=== PATIENT | female | born 1995 | race Caucasian/White ===

== ENCOUNTER 2024-02-29 14:57 | Emergency (ER) | payer OTHER ==
[2024-02-29] MEDS ORDERED: ONDANSETRON 4 MG/2 ML VIAL ONE ×2 (17:49→19:00)
[2024-02-29] MEDS ORDERED: NA CHLORIDE 0.9% 1,000 ML ONE ×2 (17:49→19:00)
[2024-02-29 18:12] LABS: Absolute Basophils 0.2 K/uL (0-0.5); Absolute Lymphocytes (CBC) 0.6 K/uL (0.7-4.9); Absolute Monocytes 0.5 K/uL (0.1-1.3); Absolute Neutrophil 20.3 K/uL (1.8-8.0); Basophils % 0.8 % (0-1.3); Hematocrit 41.8 % (36.0-45.0); Hemoglobin 14.2 g/dL (12.0-15.0); MCH 31.5 pg (27.0-35.0); MCHC 34.1 g/dL (32.0-36.0); MCV 92.3 fL (80-100); MPV 9.2 fL (7.6-11.3); Monocytes % 2.2 % (3.3-12.3); Platelets 249 thou/uL (152-406); RBC Red Blood Cell Count 4.53 M/uL (3.86-4.86); Red Cell Distribution Width 13.3 % (12.1-15.2)
[2024-02-29 18:31] LABS: Albumin 4.3 g/dL (3.4-5.0); Albumin/Globulin Ratio 1.1 (1.1-1.8); Anion Gap 8.1 mEq/L (5.0-15.0); Bilirubin Total 0.5 mg/dL (0.2-1.0); Globulin 3.9 g/dL (2.3-3.5); Potassium 3.1 mEq/L (3.5-5.1); Protein, Total 8.2 g/dL (6.4-8.2)
[2024-02-29] MEDS ORDERED: FAMOTIDINE 20 MG/2 ML VIAL IV ONE (19:00)
[2024-02-29] MEDS ORDERED: LORazepam 2 MG/ML VIAL ONE (19:36)
[2024-02-29] MEDS ORDERED: NA CHLORIDE 0.9% 50 ML ONE (19:37)
[2024-02-29] MEDS ORDERED: PROMETHAZINE INJ 25 MG/ML AMP ONE (19:37)
[2024-02-29 20:01] LABS: Blood Morphology Comment NOT SEEN (NOT SEEN); Platelet Estimate ADEQ; White Blood Cell Scan OK (OK)
[2024-02-29 20:29] LABS: Specific Gravity > 1.030 (1.005-1.030)
[2024-02-29 20:32] LABS: Specific Gravity > 1.030 (1.005-1.030); Sqamous Epithelial <5 /HPF (None Seen); Urine Bacteria <20 /HPF (<20); Urine Bilirubin NEGATIVE (Negative); Urine Blood Negative (Negative); Urine Clarity Extremely Turbid (Clear); Urine Color Light-Orange (Yellow); Urine Crystals Unidentified Moderate /HPF (None Seen); Urine Culture Reflex Order NOT NEEDED; Urine Glucose TRACE (Negative); Urine Ketones 4+ (Over) (Negative); Urine Microscopic Reflex YN ORDER UMIC; Urine Mucus 4+ /HPF (None Seen); Urine Nitrite NEGATIVE (Negative); Urine Protein 1+ (Negative); Urine RBC <5 /HPF (None Seen); Urine Urobilinogen Normal (Normal); Urine WBC Clump Occasional /HPF (None Seen)
[2024-02-29 20:39] LABS: Barbiturates NEGATIVE (NEGATIVE); Benzodiazepines NEGATIVE (NEGATIVE); Cocaine NEGATIVE (NEGATIVE); METHAMPHETAM NEGATIVE (NEGATIVE); Methadone NEGATIVE (NEGATIVE); Opiates NEGATIVE (NEGATIVE); Phencyclidine NEGATIVE (NEGATIVE); THC Cannibis POSITIVE (NEGATIVE)
--- NOTE | 2024-02-29 21:12 | RAD REPORT ---
EXAM DESCRIPTION: CTAbdomen Pelvis W Contrast - 02/29/2024 9:02 pm CLINICAL HISTORY: Abdominal pain. vomiting COMPARISON: <Comparisons> TECHNIQUE: Venous phase CT imaging of the abdomen and pelvis was performed with 100 ml non-ionic IV contrast. All CT scans are performed using dose optimization technique as appropriate and may include automated exposure control or mA/KV adjustment according to patient size. FINDINGS: The lung bases are clear.Cholecystectomy clips. Small hiatal hernia. The liver, spleen, pancreas, adrenal glands and kidneys are within normal limits. No bowel obstruction, free air, free fluid or abscess. The appendix is normal. No evidence of signi ficant lymphadenopathy. No suspicious bony findings. IMPRESSION: No acute intra-abdominal or pelvic finding.
--- NOTE | 2024-02-29 22:18 | ER ---
Nurse's Notes [facility] Name: Padma Rogers Age: 28 yrs Sex: Female : 1995 Arrival Date: 02/29/2024 Time: 14:57 Bed 11 Private MD: Diagnosis: Nausea with vomiting, unspecified Presentation: 02/28 15:24 Chief complaint: Patient states: she started a new medication, abilify, five days ago, ap3 and has started having nausea and vomiting this morning. patient is unsure if the two are related. Coronavirus screen: At this time, the client does not indicate any symptoms associated with coronavirus-19. Ebola Screen: No symptoms or risks identified at this time. Initial Sepsis Screen: Does the patient meet any 2 criteria? No. Patient's initial sepsis screen is negative. Does the patient have a suspected source of infection? No. Patient's initial sepsis screen is negative. Risk Assessment: Do you want to hurt yourself or someone else? Patient reports no desire to harm self or others. Onset of symptoms was February 29, 2024. 15:24 Method Of Arrival: Ambulatory ap3 15:24 Acuity: REYNA 3 ap3 Triage Assessment: 15:26 General: Appears uncomfortable, Behavior is calm, cooperative, appropriate for age. ap3 Pain: Denies pain. Neuro: Level of Consciousness is awake, alert, obeys commands, Oriented to person, place, time, situation, Appropriate for age. Cardiovascular: Patient's skin is warm and dry. Respiratory: Airway is patent Respiratory effort is even, unlabored, Respiratory pattern is regular, symmetrical. GI: Reports nausea, vomiting. 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 - Infectious Disease History:: Denies. - Social history:: Smoking status: Reported history of juuling and/or vaping. Screenin:27 [facility] ED Fall Risk Assessment (Adult) History of falling in the last 3 months, ap3 including since admission No falls in past 3 months (0 pts) Confusion or Disorientation No (0 pts) Intoxicated or Sedated No (0 pts) Impaired Gait No (0 pts) Mobility Assist Device Used No (0 pt) Altered Elimination No (0 pt) Score/Fall Risk Level 0 - 2 = Low Risk Oriented to surroundings, Maintained a safe environment, Educated pt \T\ family on fall prevention, incl call for assistance when getting out of bed, Assessed \T\ reinforced patient's understanding of fall precautions, Hourly rounding (assess needs \T\ fall precautionary measures) done, Used ambulatory aids as needed (educated on \T\ assisted with), Used gait belt as appropriate. Abuse screen: Denies threats or abuse. Nutritional screening: No deficits noted. Tuberculosis screening: No symptoms or risk factors identified. Assessment: 18:08 General: Appears uncomfortable, Behavior is calm, cooperative. Pain: Denies pain. tl4 Neuro: Level of Consciousness is awake, alert, obeys commands, Oriented to person, place, time, situation, Moves all extremities. Full function Speech is normal. Cardiovascular: Capillary refill < 3 seconds Patient's skin is warm and dry. Respiratory: Airway is patent Respiratory effort is even, unlabored, Respiratory pattern is regular, symmetrical. GI: Pt is actively vomiting bile, Reports nausea, vomiting. : No signs and/or symptoms were reported regarding the genitourinary system. EENT: No signs and/or symptoms were reported regarding the EENT system. Derm: No signs and/or symptoms reported regarding the dermatologic system. Musculoskeletal: No signs and/or symptoms reported regarding the musculoskeletal system. Vital Signs: 15:24 BP 148 / 91; Pulse 87; Resp 18; Temp 97.5; Pulse Ox 100% ; Weight 131.54 kg; Height 5 ap3 ft. 7 in. ; 18:07 BP 123 / 89; Pulse 85; Resp 20; Pulse Ox 99% on R/A; tl4 19:11 BP 125 / 86; Pulse 74; Resp 18; Pulse Ox 99% on R/A; tl4 20:00 BP 135 / 80; Pulse 83; Resp 16; Pulse Ox 100% ; tl4 21:00 BP 129 / 78; Pulse 89; Resp 18; Pulse Ox 100% on R/A; tl4 22:00 BP 119 / 76; Pulse 72; Resp 16; Pulse Ox 100% on R/A; tl4 22:30 BP 123 / 76; Pulse 75; Resp 18; Temp 98.5(O); Pulse Ox 99% on R/A; tl4 15:24 Body Mass Index 45.42 (131.54 kg, 170.18 cm) ap3 ED Course: 15:02 Patient arrived in ED. mg5 15:03 Roestta Hernandez PA-C is PHCP. sb4 15:03 Hira Barker MD is Attending Physician. sb4 15:25 Triage completed. ap3 15:27 Arm band placed on right wrist. ap3 17:36 Geoff Tolbert, JESUS is Primary Nurse. tl4 18:10 Patient has correct armband on for positive identification. Placed in gown. Bed in low tl4 position. Call light in reach. Side rails up X 1. Adult w/ patient. Provided Education on: ed process, call foley. Client placed on continuous cardiac and pulse oximetry monitoring. NIBP monitoring applied. Door closed. Noise minimized. Lights dimmed. Moved to private room. Warm blanket given. 18:10 No provider procedures requiring assistance completed. Initial lab(s) drawn, by pr, tl4 sent to lab. Inserted saline lock: 22 gauge in right antecubital area, using aseptic technique. Blood collected. Flushed with 10 mL NS. 18:11 CBC with Diff Sent. tl4 18:11 CMP Sent. tl4 18:11 Lipase Sent. tl4 18:13 PHCP role handed off by Rosetta Hernandez PA-C cp 18:13 Gerardo Sewell PA is PHCP. cp 19:36 Radiology exam delayed due to test not completed at this time. mw3 20:17 UDS Sent. tl4 20:17 Test, Urine Sent. tl4 20:17 Urinalysis w/ reflexes Sent. tl4 21:04 CT Abd/Pelvis - IV Contrast Only In Process Unspecified. EDMS 22:35 IV discontinued, intact, bleeding controlled, No redness/swelling at site. Pressure tl4 dressing applied. Administered Medications: 18:11 Drug: NS 0.9% IV 1000 ml IV at 1 bolus Per protocol; 1000 mL bolus Route: IV; Rate: 1 tl4 bolus; Site: right antecubital; Delivery: Primary tubing; 18:57 Follow up: Response: No adverse reaction; IV Status: Completed infusion; IV Intake: tl4 1000ml 18:11 Drug: Ondansetron IVP 4 mg IVP once; over 2 minutes Route: IVP; Infused Over: 2 mins; tl4 Site: right antecubital; 18:57 Follow up: Response: No adverse reaction; Nausea unchanged tl4 19:10 Drug: Famotidine IVP 20 mg IVP once; dilute with 10 mL 0.9% NaCl; give over 2 minutes tl4 Route: IVP; Infused Over: 2 mins; Site: right antecubital; 20:02 Follow up: Response: No adverse reaction tl4 19:10 Drug: NS 0.9% IV 1000 ml IV at 1 bolus Per protocol; 1000 mL bolus Route: IV; Rate: 1 tl4 bolus; Site: right antecubital; Delivery: Primary tubing; 22:05 Follow up: Response: No adverse reaction; IV Status: Completed infusion; IV Intake: tl4 1000ml 19:11 Drug: Ondansetron IVP 4 mg IVP once; over 2 minutes Route: IVP; Infused Over: 2 mins; tl4 Site: right antecubital; 20:02 Follow up: Response: No adverse reaction tl4 20:01 Drug: Promethazine IVP 25 mg IVP once {Note: mixed in 50mL NS.} Route: IVP; Infused tl4 Over: 15 mins; Site: right antecubital; 20:17 Follow up: Response: No adverse reaction; Nausea is decreased tl4 20:01 Drug: Ativan IVP 1 mg IVP once Route: IVP; Site: right antecubital; tl4 20:17 Follow up: Response: No adverse reaction; Nausea is decreased tl4 Medication: 18:10 VIS not applicable for this client. tl4 Intake: 18:57 IV: 1000ml; Total: 1000ml. tl4 22:05 IV: 1000ml; Total: 2000ml. tl4 Outcome: 22:17 Discharge ordered by . cp 22:35 Discharged to home ambulatory, with family, tl4 22:35 Condition: stable 22:35 Discharge instructions given to patient, family, Instructed on discharge instructions, follow up and referral plans. medication usage, Demonstrated understanding of instructions, follow-up care, medications, Prescriptions given X 3, 22:43 Patient left the ED. tl4 Signatures: Dispatcher [employer] EDMS Gerardo Sewell PA PA cp Prokisch, Amanda, RN RN ap3 Zarina Chaudhary mw3 Rosetta Hernandez PA-C PA-C sb4 Nell Rojo mg5 Geoff Tolbert, JESUS RN tl4
--- NOTE | 2024-02-29 22:18 | EDPHYS ---
Physician Documentation [facility] Name: Padma Rogers Age: 28 yrs Sex: Female : 1995 Arrival Date: 02/29/2024 Time: 14:57 Bed 11 Private MD: ED Physician Hira Barker HPI: 02/28 15:34 This 28 yrs old Female presents to ER via Ambulatory with complaints of Nausea/Vomiting.sb4 15:34 The patient presents to the emergency department with nausea, vomiting. Onset: The sb4 symptoms/episode began/occurred this morning. Possible causes: new medication, abilify. The symptoms are aggravated by nothing. The symptoms are alleviated by nothing. Associated signs and symptoms: The patient has no apparent associated signs or symptoms. The patient has not experienced similar symptoms in the past. started abilify 5 days ago, started experiencing headache and belching, intractable nausea/vomiting this mornin. 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 - Infectious Disease History:: Denies. - Social history:: Smoking status: Reported history of juuling and/or vaping. ROS: 15:34 Constitutional: Negative for fever, chills, and weight loss, sb4 15:34 Abdomen/GI: Positive for nausea and vomiting, 15:34 Neuro: Positive for headache, 15:34 All other systems are negative, Exam: 15:34 Head/Face: Normocephalic, atraumatic. Eyes: Extra-ocular motions intact. Periorbital sb4 areas with no swelling, redness, or edema. ENT: Mucous membranes moist. Respiratory: Lungs have equal breath sounds bilaterally, clear to auscultation and percussion. No rales, rhonchi or wheezes noted. No increased work of breathing, no retractions or nasal flaring. Abdomen/GI: Soft, non-tender, no distension. Skin: Warm, dry with normal turgor. Normal color with no rashes, no lesions, and no evidence of cellulitis. 15:34 Constitutional: The patient appears alert, awake, uncomfortable, vomiting 15:34 Cardiovascular: Rate: tachycardic, Rhythm: regular, Vital Signs: 15:24 BP 148 / 91; Pulse 87; Resp 18; Temp 97.5; Pulse Ox 100% ; Weight 131.54 kg; Height 5 ap3 ft. 7 in. ; 18:07 BP 123 / 89; Pulse 85; Resp 20; Pulse Ox 99% on R/A; tl4 19:11 BP 125 / 86; Pulse 74; Resp 18; Pulse Ox 99% on R/A; tl4 20:00 BP 135 / 80; Pulse 83; Resp 16; Pulse Ox 100% ; tl4 21:00 BP 129 / 78; Pulse 89; Resp 18; Pulse Ox 100% on R/A; tl4 22:00 BP 119 / 76; Pulse 72; Resp 16; Pulse Ox 100% on R/A; tl4 22:30 BP 123 / 76; Pulse 75; Resp 18; Temp 98.5(O); Pulse Ox 99% on R/A; tl4 15:24 Body Mass Index 45.42 (131.54 kg, 170.18 cm) ap3 MDM: 15:08 Patient medically screened. sb4 18:00 Differential diagnosis: gastritis, cholecystitis, pancreatitis, appendicitis, cp diverticulitis, viral gastroenteritis, gastroenteritis. 22:16 Data reviewed: vital signs, nurses notes, lab test result(s), radiologic studies, and cp as a result, I will discharge patient. Counseling: I had a detailed discussion with the patient and/or guardian regarding the historical points, exam findings, and any diagnostic results supporting the discharge/admit diagnosis, lab results, radiology results, to return to the emergency department if symptoms worsen or persist or if there are any questions or concerns that arise at home. 22:16 I considered the following discharge prescriptions or medication management in the emergency department Medications were administered in the Emergency Department. See MAR. Response to treatment: the patient's symptoms have mildly improved after treatment. ED course: VSS. Nausea improved. Patient requesting discharge to home for continued monitoring. 02/28 15:33 Order name: CBC with Diff; Complete Time: 20:51 sb4 02/28 18:41 Interpretation: Normal except: WBC 21.60; BAKARI% 94.0; LYM% 3.0; MN% 2.2; NEUT A 20.3; cp LYMA 0.6. 02/28 15:33 Order name: CMP; Complete Time: 18:41 sb4 02/28 15:33 Order name: Lipase; Complete Time: 18:41 sb4 02/28 15:33 Order name: Test, Urine; Complete Time: 20:51 sb4 02/28 15:33 Order name: Urinalysis w/ reflexes; Complete Time: 20:51 sb4 02/28 18:19 Order name: CBC Smear Scan; Complete Time: 20:51 EDMS 02/28 18:41 Order name: UDS; Complete Time: 20:51 cp 02/28 20:52 Interpretation: Reviewed. cp 02/28 19:31 Order name: CT Abd/Pelvis - IV Contrast Only; Complete Time: 21:46 cp 02/28 21:46 Interpretation: Report reviewed. 02/28 15:33 Order name: IV Saline Lock; Complete Time: 18:11 sb4 02/28 15:33 Order name: Labs collected and sent; Complete Time: 18:11 sb4 02/28 21:46 Order name: PO challenge; Complete Time: 22:28 cp Administered Medications: 18:11 Drug: NS 0.9% IV 1000 ml IV at 1 bolus Per protocol; 1000 mL bolus Route: IV; Rate: 1 tl4 bolus; Site: right antecubital; Delivery: Primary tubing; 18:57 Follow up: Response: No adverse reaction; IV Status: Completed infusion; IV Intake: tl4 1000ml 18:11 Drug: Ondansetron IVP 4 mg IVP once; over 2 minutes Route: IVP; Infused Over: 2 mins; tl4 Site: right antecubital; 18:57 Follow up: Response: No adverse reaction; Nausea unchanged tl4 19:10 Drug: Famotidine IVP 20 mg IVP once; dilute with 10 mL 0.9% NaCl; give over 2 minutes tl4 Route: IVP; Infused Over: 2 mins; Site: right antecubital; 20:02 Follow up: Response: No adverse reaction tl4 19:10 Drug: NS 0.9% IV 1000 ml IV at 1 bolus Per protocol; 1000 mL bolus Route: IV; Rate: 1 tl4 bolus; Site: right antecubital; Delivery: Primary tubing; 22:05 Follow up: Response: No adverse reaction; IV Status: Completed infusion; IV Intake: tl4 1000ml 19:11 Drug: Ondansetron IVP 4 mg IVP once; over 2 minutes Route: IVP; Infused Over: 2 mins; tl4 Site: right antecubital; 20:02 Follow up: Response: No adverse reaction tl4 20:01 Drug: Promethazine IVP 25 mg IVP once {Note: mixed in 50mL NS.} Route: IVP; Infused tl4 Over: 15 mins; Site: right antecubital; 20:17 Follow up: Response: No adverse reaction; Nausea is decreased tl4 20:01 Drug: Ativan IVP 1 mg IVP once Route: IVP; Site: right antecubital; tl4 20:17 Follow up: Response: No adverse reaction; Nausea is decreased tl4 Disposition Summary: 02/29/24 22:17 Discharge Ordered Notes: Location: Home cp Problem: new cp Symptoms: have improved cp Condition: Stable cp Diagnosis - Nausea with vomiting, unspecified cp Followup: cp - With: Private Physician - When: 2 - 3 days - Reason: Recheck today's complaints Discharge Instructions: - Discharge Summary Sheet cp - Nausea and Vomiting, Adult cp Forms: - Medication Reconciliation Form cp - Antibiotic Education cp - Prescription Opioid Use cp - Patient Portal Instructions cp - Leadership Thank You Letter cp Prescriptions: - Pepcid 20 mg Oral Tablet - take 1 tablet ORAL route every 12 hours for 10 days; 20 tablet; Refills: 0, cp Product Selection Permitted - promethazine 25 mg Oral Tablet - take 1 tablet ORAL route every 6 hours As needed; 20 tablet; Refills: 0, cp Product Selection Permitted - ondansetron 8 mg Oral Tablet,disintegrating - take 1 tablet ORAL route every 12 hours; 15 tablet; Refills: 0, Product cp Selection Permitted Signatures: Dispatcher [employer] EDNE Gerardo Sewell PA PA cp Prokisch, Amanda, RN RN Rosetta Jasso PA-C PAMadhavi sb4 Geoff Tolbert RN RN tl4 Corrections: (The following items were deleted from the chart) 03/01 21:53 08:05 Data reviewed: vital signs, nurses notes, lab test result(s), radiologic studies, cp and as a result, I will discharge patient, sb4 21:53 08:05 Counseling: I had a detailed discussion with the patient and/or guardian cp regarding the historical points, exam findings, and any diagnostic results supporting the discharge/admit diagnosis, lab results, radiology results, to return to the emergency department if symptoms worsen or persist or if there are any questions or concerns that arise at home, sb4
[2024-02-29 23:18] VITALS: TEMP 97.5
[2024-02-29 23:21] VITALS: BP 135/80; O2SAT 100
== END 2024-02-29 22:43 | disposition home or self-care (01) ==
LOC: ER 14:57
DX: R11.2 Nausea with vomiting, unspecified (principal); R51.9 Headache, unspecified
CPT/HCPCS: 96361; 85025; 81001; 36415; 81025; 83690; 80053; 80307; 74177; 96375; 96374; 99284; Q9967; J2550; J2405 ×2; J7030 ×2

== ENCOUNTER 2024-03-02 08:50 | Emergency (ER) | payer OTHER ==
[2024-03-02] MEDS ORDERED: ONDANSETRON 4 MG/2 ML VIAL ONE (09:07)
[2024-03-02] MEDS ORDERED: NA CHLORIDE 0.9% 1,000 ML ONE (09:07)
[2024-03-02 09:27] LABS: Absolute Basophils 0.1 K/uL (0-0.5); Absolute Monocytes 0.5 K/uL (0.1-1.3); Absolute Neutrophil 9.5 K/uL (1.8-8.0); Basophils % 0.5 % (0-1.3); Eosinophils % 0.1 % (0-4.4); Hematocrit 42.5 % (36.0-45.0); Lymphocytes % 8.8 % (15.3-44.8); MCV 93.7 fL (80-100); MPV 9.8 fL (7.6-11.3); Monocytes % 4.2 % (3.3-12.3); Neutrophils % 86.4 % (41.7-73.7); Platelets 247 thou/uL (152-406); RBC Red Blood Cell Count 4.53 M/uL (3.86-4.86); Red Cell Distribution Width 13.7 % (12.1-15.2)
[2024-03-02 09:59] LABS: Blood Morphology Comment NOT SEEN (NOT SEEN); Platelet Estimate ADEQ; White Blood Cell Scan OK (OK)
[2024-03-02 10:22] LABS: Albumin 4.1 g/dL (3.4-5.0); Albumin/Globulin Ratio 1.2 (1.1-1.8); Anion Gap 7.9 mEq/L (5.0-15.0); Bilirubin Total 0.5 mg/dL (0.2-1.0); Globulin 3.5 g/dL (2.3-3.5); Potassium 2.9 mEq/L (3.5-5.1); Protein, Total 7.6 g/dL (6.4-8.2)
[2024-03-02] MEDS ORDERED: NA CHLORIDE 0.9% 500 ML ONE (10:28)
[2024-03-02] MEDS ORDERED: KCL 20 MEQ/100 mL IVPB 100 ML IV ONE (10:29)
--- NOTE | 2024-03-02 12:14 | EDPHYS ---
Physician Documentation [facility] Name: Padma Rogers Age: 28 yrs Sex: Female : 1995 Arrival Date: 03/02/2024 Time: 08:50 Bed 18 Private MD: ED Physician Víctor Worthington HPI: 03/02 09:08 This 28 yrs old Female presents to ER via Ambulatory with complaints of Vomiting. rn 09:08 The patient presents to the emergency department with nausea, vomiting. Onset: The rn symptoms/episode began/occurred 2 day(s) ago. Possible causes: unknown. The symptoms are aggravated by nothing. The symptoms are alleviated by nothing. Associated signs and symptoms: Pertinent positives: nausea, vomiting, Pertinent negatives: diarrhea, fever, GI bleeding. Severity of symptoms: At their worst the symptoms were moderate in the emergency department the symptoms are unchanged. The patient has experienced similar episodes in the past. Patient reports nausea and vomiting for the last 2 or 3 days. Seen here 2 days ago and states felt better after medication. Did not throw up yesterday at all. Started throwing up again today. No blood in emesis. No abdominal pain. 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 Last smoked about a week ago. Also started Abilify recently but stopped it as soon as she started vomiting without change.. 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 - Infectious Disease History:: Denies. - Social history:: Smoking status: Reported history of juuling and/or vaping. - Family history:: not pertinent. - Hospitalizations: : No recent hospitalization is reported. ROS: 09:08 Constitutional: Negative for fever, chills, and weight loss, Neck: Negative for injury, rn pain, and swelling, Cardiovascular: Negative for chest pain, palpitations, and edema, Respiratory: Negative for shortness of breath, cough, wheezing, and pleuritic chest pain, Abdomen/GI: Positive for nausea and vomiting. No focal abdominal pain Back: Negative for injury and pain, MS/Extremity: Negative for injury and deformity, Skin: Negative for injury, rash, and discoloration, Neuro: Positive for generalized weakness Exam: 09:08 Constitutional: This is a well developed, well nourished patient who is awake, alert, rn actively vomiting. Head/Face: Normocephalic, atraumatic. ENT: Dry mucous membranes Cardiovascular: Regular rate and rhythm. No pulse deficits. Respiratory: No increased work of breathing, no retractions or nasal flaring. Abdomen/GI: Soft, non-tender Skin: Warm, dry MS/ Extremity: Pulses equal, no cyanosis. Neuro: Awake and alert, GCS 15, oriented to person, place, time, and situation. Vital Signs: 09:03 BP 148 / 91; Pulse 76; Resp 16; Temp 98.4(O); Pulse Ox 96% ; Weight 131.54 kg; Height 5 db ft. 7 in. ; Pain 0/10; 10:18 BP 143 / 62; Pulse 59; Pulse Ox 100% on R/A; tm6 11:20 Pulse 62; Pulse Ox 99% on R/A; tm6 12:52 BP 183 / 82; Pulse 68; Resp 17; Temp 98.4; Pulse Ox 100% on R/A; Pain 0/10; tm6 09:03 Body Mass Index 45.42 (131.54 kg, 170.18 cm) db 09:03 Pain Scale: Adult db 12:52 Pain Scale: Adult tm6 MDM: 08:55 Patient medically screened. rn 12:12 Differential diagnosis: Nonspecific abd pain, gastritis, appendicitis, diverticulitis, rn viral gastroenteritis, gastroenteritis. Data reviewed: vital signs, nurses notes, old medical records, lab test result(s), and as a result, I will discharge patient. Counseling: I had a detailed discussion with the patient and/or guardian regarding the historical points, exam findings, and any diagnostic results supporting the discharge/admit diagnosis, lab results, the need for outpatient follow up, to return to the emergency department if symptoms worsen or persist or if there are any questions or concerns that arise at home. Special discussion: I discussed with the patient/guardian in detail that at this point there is no indication for admission to the hospital. It is understood, however, that if the symptoms persist or worsen the patient needs to return immediately for re-evaluation. ED course: Patient improved, no longer vomiting. WBC improved compared to last visit [address] abdomen pelvis was -2 days ago. No gallbladder so ultrasound canceled. Never filled her prescription for nausea medication. Will discharge home with instructions to fill her medication and given return precautions.. 03/02 09:07 Order name: CBC with Diff; Complete Time: 10:08 rn 03/02 09:07 Order name: CMP; Complete Time: 10:23 rn 03/02 09:07 Order name: Lipase; Complete Time: 10:23 rn 03/02 09:59 Order name: CBC Smear Scan; Complete Time: 10:08 EDMS 03/02 09:07 Order name: IV Saline Lock; Complete Time: 09:26 rn 03/02 09:07 Order name: Labs collected and sent; Complete Time: 09:26 rn Administered Medications: 09:15 Drug: NS 0.9% IV 1000 ml IV at 1 bolus Per protocol; 1000 mL bolus Route: IV; Rate: 1 db bolus; Site: right antecubital; 10:18 Follow up: Response: No adverse reaction; IV Status: Completed infusion; IV Intake: tm6 1000ml 09:16 Drug: Ondansetron IVP 4 mg IVP once; over 2 minutes Route: IVP; Site: right antecubital;db 10:18 Follow up: Response: No adverse reaction tm6 10:14 Drug: Droperidol IVP 1.25 mg IVP once Route: IVP; Site: right antecubital; tm6 10:39 Follow up: Response: Marked relief of symptoms tm6 10:38 Not Given (med not availablee): potassium [id number] meq IV at calculated rate once; tm6 administer over 1-2 hours 10:39 Drug: Potassium Chloride IV 20 mEq IV at calculated rate once; administer over 1-2 tm6 hours Route: IV; Rate: calculated rate; Site: right antecubital; 12:52 Follow up: Response: No adverse reaction; IV Status: Completed infusion; IV Intake: tm6 100ml 12:52 Drug: Famotidine IVP 20 mg IVP once; dilute with 10 mL 0.9% NaCl; give over 2 minutes tm6 Route: IVP; Site: right antecubital; 12:52 Follow up: Response: Medication administered at discharge. 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 EDSD EDMS
--- NOTE | 2024-03-02 12:14 | ER ---
Nurse's Notes [facility] Name: Padma Rogers Age: 28 yrs Sex: Female : 1995 Arrival Date: 03/02/2024 Time: 08:50 Bed 18 Private MD: Diagnosis: Nausea with vomiting, unspecified;Cyclical vomiting, not intractable Presentation: 03/02 09:03 Chief complaint: Patient states: N/V X 3 DAYS. DENIES ABD PAIN. Coronavirus screen: db Client denies travel out of the [place] in the last 14 days. At this time, the client does not indicate any symptoms associated with coronavirus-19. Ebola Screen: Patient negative for fever greater than or equal to 101.5 degrees Fahrenheit, and additional compatible Ebola Virus Disease symptoms Patient denies exposure to infectious person. Patient denies travel to an Ebola-affected area in the 21 days before illness onset. No symptoms or risks identified at this time. Initial Sepsis Screen: Does the patient meet any 2 criteria? No. Patient's initial sepsis screen is negative. Does the patient have a suspected source of infection? No. Patient's initial sepsis screen is negative. Risk Assessment: Do you want to hurt yourself or someone else? Patient reports no desire to harm self or others. Onset of symptoms was February 28, 2021. 09:03 Method Of Arrival: Ambulatory db 09:03 Acuity: REYNA 3 db Triage Assessment: 09:00 General: Appears in no apparent distress. uncomfortable, Behavior is calm, cooperative. db Pain: Denies pain. Neuro: Level of Consciousness is awake, alert, obeys commands, Oriented to person, place, time, situation. GI: Abdomen is non-distended, Pt is actively vomiting Reports nausea, vomiting. 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 - Infectious Disease History:: Denies. - Social history:: Smoking status: Reported history of juuling and/or vaping. - Family history:: not pertinent. - Hospitalizations: : No recent hospitalization is reported. Screenin:53 [facility] ED Fall Risk Assessment (Adult) History of falling in the last 3 months, tm6 including since admission No falls in past 3 months (0 pts) Confusion or Disorientation No (0 pts) Intoxicated or Sedated No (0 pts) Impaired Gait No (0 pts) Mobility Assist Device Used No (0 pt) Altered Elimination No (0 pt) Score/Fall Risk Level 0 - 2 = Low Risk Oriented to surroundings, Maintained a safe environment, Educated pt \T\ family on fall prevention, incl call for assistance when getting out of bed. Abuse screen: Denies threats or abuse. Denies injuries from another. Nutritional screening: No deficits noted. Tuberculosis screening: No symptoms or risk factors identified. Assessment: 09:05 Reassessment: SEE TRIAGE FOR INITIAL ASSESSMENT. db 10:00 General: Appears uncomfortable, ill, Behavior is calm, cooperative. Neuro: Level of tm6 Consciousness is awake, alert, obeys commands, Oriented to person, place, time, situation. Cardiovascular: Patient's skin is warm and dry. Respiratory: Airway is patent Respiratory effort is even, unlabored, Respiratory pattern is regular, symmetrical. GI: Abdomen is round Abd is soft and non tender X 4 quads. Reports nausea, vomiting. 10:00 Reassessment: Patient states symptoms have not improved. tm6 11:20 Reassessment: Patient appears in no apparent distress at this time. Patient and/or tm6 family updated on plan of care and expected duration. Pain level reassessed. Patient is alert, oriented x 3, equal unlabored respirations, skin warm/dry/pink. Patient states symptoms have improved. 12:25 Reassessment: discharge pending completion of IV potassium. tm6 12:53 Reassessment: Patient and/or family updated on plan of care and expected duration. Pain tm6 level reassessed. Patient is alert, oriented x 3, equal unlabored respirations, skin warm/dry/pink. Vital Signs: 09:03 BP 148 / 91; Pulse 76; Resp 16; Temp 98.4(O); Pulse Ox 96% ; Weight 131.54 kg; Height 5 db ft. 7 in. ; Pain 0/10; 10:18 BP 143 / 62; Pulse 59; Pulse Ox 100% on R/A; tm6 11:20 Pulse 62; Pulse Ox 99% on R/A; tm6 12:52 BP 183 / 82; Pulse 68; Resp 17; Temp 98.4; Pulse Ox 100% on R/A; Pain 0/10; tm6 09:03 Body Mass Index 45.42 (131.54 kg, 170.18 cm) db 09:03 Pain Scale: Adult db 12:52 Pain Scale: Adult tm6 ED Course: 08:53 Patient arrived in ED. mr 08:55 Víctor Worthington MD is Attending Physician. rn 09:00 Arm band placed on Patient placed in an exam room. db 09:04 Triage completed. db 09:14 Initial lab(s) drawn, by me, sent to lab. Inserted saline lock: 20 gauge in right db antecubital area, using aseptic technique. Blood collected. Flushed with 10 mL NS. 09:55 Tika Ku, RN is Primary Nurse. tm6 09:55 Lipase Sent. tm6 09:55 CMP Sent. tm6 10:00 Patient has correct armband on for positive identification. Bed in low position. Call tm6 light in reach. Side rails up X 1. Provided Education on: use of call foley. Client placed on continuous cardiac and pulse oximetry monitoring. NIBP monitoring applied. Pulse ox on. NIBP on. Door closed. Noise minimized. Lights dimmed. Warm blanket given. 12:54 No provider procedures requiring assistance completed. IV discontinued, intact, tm6 bleeding controlled, No redness/swelling at site. Pressure dressing applied. Administered Medications: 09:15 Drug: NS 0.9% IV 1000 ml IV at 1 bolus Per protocol; 1000 mL bolus Route: IV; Rate: 1 db bolus; Site: right antecubital; 10:18 Follow up: Response: No adverse reaction; IV Status: Completed infusion; IV Intake: tm6 1000ml 09:16 Drug: Ondansetron IVP 4 mg IVP once; over 2 minutes Route: IVP; Site: right antecubital;db 10:18 Follow up: Response: No adverse reaction tm6 10:14 Drug: Droperidol IVP 1.25 mg IVP once Route: IVP; Site: right antecubital; tm6 10:39 Follow up: Response: Marked relief of symptoms tm6 10:38 Not Given (med not availablee): potassium [id number] meq IV at calculated rate once; tm6 administer over 1-2 hours 10:39 Drug: Potassium Chloride IV 20 mEq IV at calculated rate once; administer over 1-2 tm6 hours Route: IV; Rate: calculated rate; Site: right antecubital; 12:52 Follow up: Response: No adverse reaction; IV Status: Completed infusion; IV Intake: tm6 100ml 12:52 Drug: Famotidine IVP 20 mg IVP once; dilute with 10 mL 0.9% NaCl; give over 2 minutes tm6 Route: IVP; Site: right antecubital; 12:52 Follow up: Response: Medication administered at discharge. tm6 Medication: 12:54 VIS not applicable for this client. tm6 Intake: 10:18 IV: 1000ml; Total: 1000ml. tm6 12:52 IV: 100ml; Total: 1100ml. tm6 Outcome: 12:14 Discharge ordered by . rn 12:54 Discharged to home ambulatory, tm6 12:54 Condition: stable 12:54 Discharge instructions given to patient, Instructed on discharge instructions, follow up and referral plans. Demonstrated understanding of instructions, follow-up care, 12:54 Patient left the ED. tm6 Signatures: Maxine Roca, Reg Reg mr Víctor Worthington MD MD rn Benton, Danielle, RN RN db Masterson, Tawney, RN RN tm6
[2024-03-02] MEDS ORDERED: FAMOTIDINE 20 MG/2 ML VIAL IV ONE (12:22)
[2024-03-02 13:08] VITALS: TEMP 98.4
[2024-03-02 13:14] VITALS: BP 183/82; O2SAT 100
== END 2024-03-02 12:54 | disposition home or self-care (01) ==
LOC: ER 08:50
DX: R11.2 Nausea with vomiting, unspecified (principal); R11.15 Cyclical vomiting syndrome unrelated to migraine
CPT/HCPCS: 96365; 96361; 85025; 36415; 83690; 80053; 96375; 99284; 96366; J3480; J2405; J7040; J7030